=== PATIENT | female | born 1995 | race Caucasian/White ===

== ENCOUNTER → 2017-05-19 | Outpatient (CLI) | payer OTHER, MEDICAID ==
[~2017-05-19] MED LIST: MEDROL 4MG. DOSE4 MG PO; MOTRIN 400MG.400 MG PO; NICOTINE T21 MG/24 H TD; PERCOCET 5/3251 EACH PO; PRENATAL PLUS1 TA1 PO
[2017-05-21 16:44] LABS: Neisseria gonorrhoeae, NAA Negative (Negative)
== END ==
LOC: LAB 18:19
PROVIDERS: Nurse Practitioner Obstetrics & Gynecology
DX: Z72.51 High risk heterosexual behavior (principal); N76.0 Acute vaginitis